=== PATIENT | male | born 1990 | race Caucasian/White ===

== ENCOUNTER 2019-11-13 22:43 | Emergency (ER) | payer MEDICAID ==
--- NOTE | 2019-11-13 22:46 | ED Physician Documentation ---
History of Present Illness - Stated complaint Stated Complaint: ABD PX - History obtained from History obtained from: Patient (Patient is a 29-year-old male presents with a chief complaint of abdominal pain with nausea and vomiting patient reports that he thinks he might have gallstones. He denies any dark urine or sarah colored stools or any flank pain or dysuria or hematuria.He denies any fevers or any history of previous abdominal surgeries.) Review of Systems Constitutional: reports: Reviewed and negative Eyes: reports: Reviewed and negative Ears: reports: Reviewed and negative Nose: reports: Reviewed and negative Throat: reports: Reviewed and negative Cardiac: reports: Reviewed and negative Respiratory: reports: Reviewed and negative GI: reports: Abdominal Pain, Nausea, Vomiting : reports: Reviewed and negative Skin: reports: Reviewed and negative Musculoskeletal: reports: Reviewed and negative Neurologic: reports: Reviewed and negative Psychiatric: reports: Reviewed and negative Endocrine: reports: Reviewed and negative Immunocompromised: reports: Reviewed and negative PD PAST MEDICAL HISTORY - Allergies Allergies/Adverse Reactions: Allergies Allergy/AdvReac Type Severity Reaction Status Date / Time amoxicillin Allergy Rash Verified 11/13/19 22:46 Penicillins Allergy Rash Verified 11/13/19 22:46 PD ED PE NORMAL - Vitals Vital signs reviewed: Yes - General General: Alert and oriented X 3, No acute distress, Well developed/nourished - HEENT HEENT: PERRL, Moist mucous membranes, Pharynx benign - Neck Neck: Supple, no meningeal sign - Cardiac Cardiac: RRR, No murmur, Strong equal pulses - Respiratory Respiratory: No respiratory distress, Clear bilaterally - Abdomen Abdomen: Other (There is diffuse tenderness more so on the right upper quadrant, negative Ma sign, negative Rovsing's negative psoas no peritoneal signs no midline abdominal pulsatile mass diminished bowel sounds, diffusely tender to palpation no skin ecchymosis no flank ecchymosis no CVA tenderness.) - Back Back: No CVA TTP, No spinal TTP - Derm Derm: Normal color, Warm and dry, No rash - Extremities Extremities: No deformity, No tenderness to palpate, Normal ROM s pain, No edema, No calf tenderness / cord - Neuro Neuro: Alert and oriented X 3, practice coordinator 2-12 intact, No motor deficit, No sensory deficit, Normal speech - Psych Psych: Normal mood, Normal affect Results - Vitals Vitals: Vital Signs - 24 hr 11/13/19 11/13/19 11/14/19 22:46 23:37 00:32 Temperature 36.5 C Heart Rate 100 91 90 Respiratory 16 18 18 Rate Blood Pressure 137/83 H 126/80 125/76 O2 Saturation 98 96 98 11/14/19 01:42 Temperature Heart Rate 83 Respiratory 18 Rate Blood Pressure 116/80 O2 Saturation 98 Oxygen O2 Source Room air - Labs Labs: Laboratory Tests 11/13/19 11/13/19 11/13/19 23:05 23:25 23:25 WBC 6.1 RBC 5.21 Hgb 15.9 Hct 44.9 MCV 86.2 MCH 30.5 MCHC 35.4 RDW 12.3 Plt Count 246 MPV 10.8 Neut # (Auto) 4.1 Lymph # (Auto) 1.4 L Frio # (Auto) 0.5 Eos # (Auto) 0.1 Baso # (Auto) 0.1 Absolute Nucleated RBC 0.00 Nucleated RBC % 0.0 Sodium 138 Potassium 3.6 Chloride 102 Carbon Dioxide 26 Anion Gap 10.0 BUN 13 Creatinine 1.0 Estimated GFR (MDRD) 88 L Glucose 108 H Calcium 9.1 Total Bilirubin 0.6 Direct Bilirubin 0.1 AST 26 ALT 33 Alkaline Phosphatase 71 Total Protein 7.0 Albumin 4.5 Globulin 2.5 Lipase 32 Urine Color YELLOW Urine Clarity CLEAR Urine pH 5.5 Ur Specific [place] 1.020 Urine Protein NEGATIVE Urine Glucose (UA) NEGATIVE Urine Ketones NEGATIVE Urine Occult Blood NEGATIVE Urine Nitrite NEGATIVE Urine Bilirubin NEGATIVE Urine Urobilinogen 0.2 (NORMAL) Ur Leukocyte Esterase NEGATIVE Ur Microscopic Review NOT INDICATED Urine Culture Comments NOT INDICATED PD MEDICAL DECISION MAKING - ED course Complexity details: reviewed results, re-evaluated patient, considered differential (Cholelithiasis, cholecystitis, pancreatitis, peptic ulcer disease, GERD, Gastritis), d/w patient, other (Patient CT scan scan does show possible epiploic appendagitis. Had a lengthy discussion about this and recommend that he have close follow-up. He agrees to do so. He should hydrate well take ibuprofen or Tylenol as needed for symptoms and follow-up with a primary care provider today or return to the emergency department within the next 24 hours for recheck.) Departure - Departure Disposition: 01 Home, Self Care Clinical Impression: Epiploic appendagitis, Gastroparesis Abdominal pain Qualifiers: Abdominal location: unspecified location Qualified Code(s): R10.9 - Unspecified abdominal pain Condition: Stable Instructions: Abdominal Pain Follow-Up: your, doctor [Other] - 11/14/19 [facility] [Provider Group] - 11/14/19 Comments: take 600 mg of ibuprofen as needed for symptoms. follow up with your primary care provider today. Discharge Date/Time: 11/14/19 01:42
[2019-11-13] MEDS ORDERED: SODIUM CHLORIDE 0.9% 1,000 ML IV STA (23:13)
[2019-11-13] MEDS ORDERED: ONDANSETRON 4 MG/2 ML VIAL IVP STA (23:13)
[2019-11-13] MEDS ORDERED: MORPHINE 2 MG/ML CARPUJECT IVP STA (23:13)
[2019-11-13 23:20] LABS: BILIRUBIN,URINE NEGATIVE (NEGATIVE); CLARITY,URINE CLEAR (CLEAR); GLUCOSE, URINE (UA) NEGATIVE (NEGATIVE); KETONES,URINE (UA) NEGATIVE (NEGATIVE); LEUKOCYTE ESTERASE, URINE NEGATIVE (NEGATIVE); NITRITE,URINE NEGATIVE (NEGATIVE); OCCULT BLOOD,URINE NEGATIVE (NEGATIVE); PH,URINE 5.5 PH (5.0-7.5); PROTEIN,URINE NEGATIVE (NEGATIVE); UROBILINOGEN,URINE 0.2 (NORMAL) E.U./dL (NORMAL)
[2019-11-13] MEDS ORDERED: IOVERSOL 320 100 ML VIAL IVP ONE (23:25)
[2019-11-13 23:46] LABS: BASOPHILS # (AUTO) 0.1 10^3/uL (0.0-0.1); BASOPHILS % (AUTO) 0.8 %; EOSINOPHILS # (AUTO) 0.1 10^3/uL (0.0-0.7); EOSINOPHILS % (AUTO) 1.8 %; HGB - HEMOGLOBIN 15.9 g/dL (14.0-18.0); LYMPHOCYTES # (AUTO) 1.4 10^3/uL (1.5-3.5); LYMPHOCYTES % (AUTO) 22.2 %; MEAN CORPUSCULAR HEMOGLOBIN 30.5 pg (27.0-31.0); MEAN CORPUSCULAR HGB CONC 35.4 g/dL (32.0-36.0); MEAN CORPUSCULAR VOLUME 86.2 fL (80.0-94.0); MEAN PLATELET VOLUME 10.8 fL (7.4-11.4); MONOCYTES # (AUTO) 0.5 10^3/uL (0.0-1.0); MONOCYTES % (AUTO) 7.6 %; NEUTROPHILS # (AUTO) 4.1 10^3/uL (1.5-6.6); NEUTROPHILS % (AUTO) 67.3 %; PLT - PLATELET COUNT 246 10^3/uL (130-450); RED BLOOD COUNT 5.21 10^6/uL (4.70-6.10); RED CELL DISTRIBUTION WIDTH 12.3 % (12.0-15.0); WHITE BLOOD COUNT 6.1 x10^3/uL (4.8-10.8)
[2019-11-14 00:02] LABS: ALBUMIN 4.5 g/dL (3.2-5.5); BILIRUBIN,DIRECT 0.1 mg/dL (0.1-0.5); BILIRUBIN,TOTAL 0.6 mg/dL (0.2-1.0); CALCIUM 9.1 mg/dL (8.5-10.3)
[2019-11-14 01:43] VITALS: BP 116/80
--- NOTE | 2019-11-14 08:18 | CT Report ---
PROCEDURE: Abdomen/Pelvis W INDICATIONS: abd pain CONTRAST: IV CONTRAST: Optiray 320 ml: 100 PO CONTRAST: *NO PO CONTRAST TECHNIQUE: After the administration of oral and intravenous contrast, 5 mm thick sections acquired from the diap hragms to the symphysis. 5 mm thick coronal and sagittal reformats were acquired. For radiation dos e reduction, the following was used: automated exposure control, adjustment of mA and/or kV accordin g to patient size. COMPARISON: None. FINDINGS: Image quality: Excellent. ABDOMEN: Lung bases: Lung bases are clear. Heart size is normal. Solid organs: Liver and spleen are normal in size and enhancement. Mild hepatic steatosis is seen. Gallbladder is within normal limits Biliary system is non dilated. Pancreas enhances normally. No adrenal nodules. Kidneys demonstrate normal size and enhancement, without hydronephrosis. Peritoneum and bowel: Bowel loops demonstrate normal wall thickness and caliber. No free fluid or a ir. Fecal stasis throughout the colon is seen. Questionable pericolonic fat stranding adjacent to po sterior and left lateral aspect of mid to distal sigmoid colon. No abscess collection. Nodes and vessels: No retroperitoneal or mesenteric adenopathy by size criteria. Aorta and inferior vena cava are normal in size. Miscellaneous: No ventral hernias. PELVIS: Genitourinary: Bladder wall thickness is normal. Miscellaneous: No inguinal hernias or adenopathy. Bones: No suspicious bony lesions. No vertebral body compression fractures. IMPRESSION: 1. Pericolonic fat stranding adjacent to distal sigmoid colon in left lower quadrant, which may repre sent low-grade epiploic appendagitis. No abnormal bowel wall thickening. No bowel obstruction. No abs cess collection. No free fluid or free air. Mild constipation. 2. Mild hepatic steatosis. No significant discrepancies. Reviewed by: Duncan Kaminski MD on 11/14/2019 8:17 AM PDT Approved by: Duncan Kaminski MD on 11/14/2019 8:17 AM PDT Station ID: [id number]
[2019-11-14] MEDS ORDERED: IOVERSOL 320 100 ML VIAL IVP ONE (17:12)
== END 2019-11-14 01:42 | disposition home or self-care (01) ==
LOC: ED 22:43
DX: K63.89 Other specified diseases of intestine (principal); K31.84 Gastroparesis; K76.0 Fatty (change of) liver, not elsewhere classified
CPT/HCPCS: 36415; 74177; 80048; 80076; 81003; 83690; 85025; 96361; 96374; 99283; 99284; Q9967; 81001; 87086

== ENCOUNTER 2020-03-14 18:31 | Outpatient (CLI) | payer MEDICAID ==
--- NOTE | 2020-03-14 19:58 | Ultrasound Report ---
PROCEDURE: Abdomen Limited INDICATIONS: RUQ PAIN TECHNIQUE: Real-time focused scanning was performed of the abdomen, with image documentation. COMPARISON: CT of abdomen and pelvis dated 11/14/2019 FINDINGS: There is hepatomegaly measures 18.6 cm in length. Increased liver parenchymal echotexture is seen. Fo sonam area of sparing is noted adjacent to gallbladder fossa. There is no gallstone. No gallbladder wall thickening or sonographic Ma's sign. There is no intrahepatic biliary duct dilatation. Common bile duct measures 5 mm in diameter and is w ithin normal limits. Pancreas is not visualized due to overlying bowel gas. Right kidney measures 11.6 cm in length. There is a 9 mm right renal cyst. No hydronephrosis. No rubén d-appearing renal lesion. IMPRESSION: 1. Hepatomegaly and hepatic steatosis. No discrete hepatic lesion. 2. Normal-appearing gallbladder. No biliary ductal dilatation. 3. Small subcentimeter right renal cyst. No hydronephrosis. Reviewed by: Duncan Kaminski MD on 03/14/2020 7:57 PM PDT Approved by: Duncan Kaminski MD on 03/14/2020 7:57 PM PDT Station ID: [id number]
== END 2020-03-14 18:32 | disposition home or self-care (01) ==
LOC: DI 18:31
DX: R10.11 Right upper quadrant pain (principal); N28.1 Cyst of kidney, acquired; K76.0 Fatty (change of) liver, not elsewhere classified
CPT/HCPCS: 76705

== ENCOUNTER 2020-04-23 14:00 | Outpatient (CLI) | payer MEDICAID ==
[2020-04-23 14:29] LABS: BASOPHILS # (AUTO) 0.1 10^3/uL (0.0-0.1); EOSINOPHILS # (AUTO) 0.1 10^3/uL (0.0-0.7); EOSINOPHILS % (AUTO) 1.8 %; HGB - HEMOGLOBIN 16.5 g/dL (14.0-18.0); LYMPHOCYTES # (AUTO) 1.2 10^3/uL (1.5-3.5); MEAN CORPUSCULAR HEMOGLOBIN 29.6 pg (27.0-31.0); MEAN CORPUSCULAR HGB CONC 34.5 g/dL (32.0-36.0); MEAN CORPUSCULAR VOLUME 85.8 fL (80.0-94.0); MEAN PLATELET VOLUME 10.9 fL (7.4-11.4); MONOCYTES # (AUTO) 0.4 10^3/uL (0.0-1.0); MONOCYTES % (AUTO) 8.4 %; NEUTROPHILS # (AUTO) 3.1 10^3/uL (1.5-6.6); PLT - PLATELET COUNT 246 10^3/uL (130-450); RED BLOOD COUNT 5.57 10^6/uL (4.70-6.10); RED CELL DISTRIBUTION WIDTH 13.1 % (12.0-15.0); WHITE BLOOD COUNT 4.9 x10^3/uL (4.8-10.8)
[2020-04-23 14:45] LABS: ALBUMIN 4.4 g/dL (3.2-5.5); ALBUMIN/GLOBULIN RATIO 1.5 (1.0-2.2); BILIRUBIN,DIRECT 0.1 mg/dL (0.1-0.5); BILIRUBIN,TOTAL 0.7 mg/dL (0.2-1.0); CALCIUM 9.8 mg/dL (8.5-10.3); CREATININE 1.1 mg/dL (0.6-1.2); TOTAL PROTEIN 7.3 g/dL (6.7-8.2)
== END 2020-04-23 14:01 | disposition home or self-care (01) ==
LOC: LAB 14:00
PROVIDERS: ATTEND Internal Medicine
DX: R16.0 Hepatomegaly, not elsewhere classified (principal)
CPT/HCPCS: 36415; 80053; 80076; 85025

== ENCOUNTER 2020-05-21 10:31 | Outpatient (CLI) | payer MEDICAID ==
[2020-05-21 11:49] VITALS: BP 123/86
--- NOTE | 2020-05-21 11:49 | SLEEP CARE CONSULTATION ---
Information from patient questionnaire entered by Catalina Macario. I have reviewed and concur with the information entered by Catalina Macario. This document represents the service I personally performed and the decisions made by me, Ileana Osei ARNP. History of Present Illness Service Date and Time: 05/21/2020 1031 Reason for Visit: New patient Chief Complaint: reports: Unrefreshed sleep, Snoring (rarely), Excessive daytime sleepiness (sometimes, taking naps lately with new medication), Observed pauses in breathing, Frequent awakenings at night. denies: Insomnia, Fatigue Date of Onset: 2-3 month Usual bedtime: 9 pm - 1 am Time it takes to fall asleep: 30-60 minutes Snores at night: No Observed to quit breathing while asleep: No Sleeps alone due to snoring: No Number of times waking at night: 2-3 Reasons for waking at night: reports: Choking (sometimes), Gasping for air (once), Bathroom. denies: Snoring Toss, Turn, or Twitch while sleeping: Yes Recalls having dreams: Yes Usually gets out of bed at: 6-11 am Feels refreshed in the morning: Yes (sometimes) Morning headache: No Sleepy or fatigued during the day: Yes Ever fallen asleep while driving: No Takes day naps: Yes Dreams during day naps: Yes Prior sleep studies: Yes (when I was young, in [place]) Additional HPI information: I had the pleasure of seeing MARY SMITH today regarding the possibility of him having a sleep disorder. His current complaints are observed pauses in breathing and frequent night awakenings. He feels his sleep pattern is off because he thinks he has had a "psychic break" due to medications he was taking about 1-2 months ago and now he is having anxiety about his being in his bed and stopping breathing when sleeping. He woke up once gasping because he could not move or breathe. He does not think he snores but he did have a girlfriend who told him he snored. He thinks it is more when he is having bad allergies. He has stopped smoking 2 years ago. He stopped smoking weed 2 months ago to be able to get a job. He used smoking weed for his anxiety mostly. He just wants to see if he has sleep apnea or if it might be something in his mind that he needs different therapy to treat. - Parasomnia Symptoms Ever been unable to move upon waking from sleep: Yes Walks in sleep: No Talks in sleep: Yes Ever acted out dreams in sleep: No Ever felt weak in the knees when startled or emotional: No Bothered by creepy, crawly, restless sensations in legs: No Problems with memory or concentration: Yes Subjective Initial [place] Sleepiness Scale score: 7 (in 2020) Past Medical History Past Medical History: reports: Anxiety, Mood disorder (Bipolar, PTSD), GERD, Attention deficit. denies: Hypertension, Arrythmia, Depression Social History The patient's occupation is a Not Employed. Patient is Single and lives in [place]. Have you smoked in the past 12 months: No Cigarettes per day (20/pack): 20 Years of smokin Quit date: 10/2018 Smoking Pack Years: 10.0 Alcohol use: No Alcohol amount and frequency: 6-15 drinks every day for 3 years; in the past Caffeine use: No Family History Family history of sleep disordered breathing: No Allergies and Home Medications Drug allergies reviewed: Yes (amoxicillin, penicillin) Home medication list reviewed: Yes Allergy and home medication list: Abidavid Xanax Lamictal Seroquel Review of Systems Weight gain over past 5 years: 65 Cardiovascular: denies: high blood pressure Respiratory: reports: shortness of breath Gastrointestinal: reports: heartburn (occasionally), abdominal pain Urinary: reports: frequency Neurological: denies: headaches Psychiatric: reports: Attention Deficit Hyperactivity, anxiety, mood disorder Ear/Nose/Throat: reports: nasal congestion, sinus problems, wisdom teeth removed. denies: dry mouth/throat, tonsillectomy Endocrine: reports: increased urination Musculoskeletal: reports: neck pain Immunologic: reports: allergies to food or environment Physical Exam Blood Pressure: 123/86 Cuff size: wrist Heart Rate: 79 O2 Saturation: 96 Height: 6 ft Weight: 208 lb Body Mass Index: 28.2 BMI Classification: Overweight Neck circumference: 15.2 (inches) Nostrils: patent to airflow Turbinates: swollen Mouth and throat: narrow oropharynx Hard palate: arched Uvula visualization: 50% Mallampati Class II Tongue: enlarged in size with teeth tamez on lateral edges Tonsils: 1+ Chin and jaw: normal size and position Neck: normal w/o lymphadenopathy or thyromegaly Heart: regular rate and rhythm Lungs: clear bilaterally Impression and Plan 1. Suspected Obstructive Sleep Apnea-Hypopnea Syndrome, as suggested by a history of irregular snoring, observed cessation of breath while asleep, gasping or choking in sleep, frequent awakening during the night, unrefreshed sleep, cognitive impairment, and excessive daytime sleepiness. I reviewed with patient that a narrow oropharynx and obesity are common predisposing factors for obstructive sleep apnea-hypopnea syndrome. I recommend proceeding to polysomnography to confirm the diagnosis and to assess severity. If the patient has significant sleep disordered breathing, a manual CPAP titration study will also be performed to find the optimal treatment pressure. I informed the patient of what the sleep studies involve and after some discussion, obtained agreement to proceed. The pathophysiology of obstructive sleep apnea-hypopnea syndrome was discussed with the patient and health risks of cardiovascular and cerebrovascular disease if not treated. AAS brochure for obstructive sleep apnea-hypopnea syndrome given and reviewed. Risks of drowsy driving discussed in detail and patient advised to avoid long distance driving and to harness puller at the first sign of drowsiness. Patient agreed to plan. * Schedule polysomnography +- manual CPAP titration study and return in 1-2 weeks after the study to discuss result and initiate therapy. * Avoid long distance driving or driving when feeling sleepy. * Avoid alcohol, sedative and muscle relaxant around bedtime. * Attempt to lose weight. * Review instructions provided by trained office staff on how to prepare for the sleep study. * Return for follow-up after sleep study completed. Counseling Topics: Weight loss health impact Visit Type: In Office Time Spent with Patient (minutes): 32 Provider Statement: I spent 100% of the Face to Face Visit with the patient with greater than 50% spent counseling the patient and coordination of care.
== END 2020-05-21 10:32 | disposition home or self-care (01) ==
LOC: SC 10:31
PROVIDERS: ATTEND Nurse Practitioner Family
DX: G47.10 Hypersomnia, unspecified (principal); R41.89 Other symptoms and signs involving cognitive functions and awareness; G47.8 Other sleep disorders; R06.81 Apnea, not elsewhere classified; R06.83 Snoring; E66.3 Overweight; Z68.28 Body mass index [BMI] 28.0-28.9, adult
CPT/HCPCS: 99203; 99212

== ENCOUNTER 2020-06-11 19:30 | Outpatient (CLI) | payer MEDICAID | END 2020-06-11 19:31 | disposition home or self-care (01) | LOC: SC 19:30 | PROVIDERS: ATTEND Nurse Practitioner Family | DX: Z53.9 Procedure and treatment not carried out, unspecified reason (principal) ==

== ENCOUNTER 2020-07-19 16:06 | Emergency (ER) | payer MEDICAID ==
[2020-07-19 16:16] VITALS: BP 127/72
[2020-07-19] MEDS ORDERED: LIDOCAINE 2% URO-JET 5 ML SYRINGE UR STA (16:27)
--- NOTE | 2020-07-19 16:29 | ED Physician Documentation ---
PD HPI MALE - Stated complaint Stated Complaint: MALE - Chief complaint Chief Complaint: Abd Pain - History obtained from History obtained from: Patient - Additional information Additional information: He took an oxycodone that was prescribed to him for dental pain and subsequently was unable to urinate. This started about an hour ago. He feels like he has to pee but nothing comes out. No flank pain. Review of Systems Ten Systems: 10 systems reviewed and negative Constitutional: denies: Fever, Chills Cardiac: reports: Reviewed and negative Respiratory: reports: Reviewed and negative PD PAST MEDICAL HISTORY - Past Surgical History Past Surgical History: No - Allergies Allergies/Adverse Reactions: Allergies Allergy/AdvReac Type Severity Reaction Status Date / Time amoxicillin Allergy Rash Verified 07/19/20 16:16 Penicillins Allergy Rash Verified 07/19/20 16:16 - Social History Does the pt smoke?: No Smoking Status: Former smoker Does the pt drink ETOH?: No Does the pt have substance abuse?: No - Immunizations Immunizations are current?: Yes - POLST Patient has POLST: No PD ED PE NORMAL - Vitals Vital signs reviewed: Yes - General General: Alert and oriented X 3, No acute distress - HEENT HEENT: PERRL, EOMI - Abdomen Abdomen: Other (Very mild suprapubic tenderness. Bladder scan was done by the tech and reported to me as greater than 200 mL.) - Neuro Neuro: Alert and oriented X 3, Normal speech Results - Vitals Vitals: Vital Signs - 24 hr 07/19/20 16:13 Temperature 36.7 C Heart Rate 66 Respiratory 16 Rate Blood Pressure 127/72 O2 Saturation 96 Oxygen O2 Source Room air - Labs Labs: Laboratory Tests 07/19/20 16:49 Urine Color YELLOW Urine Clarity CLEAR Urine pH 8.0 H Ur Specific [place] 1.020 Urine Protein NEGATIVE Urine Glucose (UA) NEGATIVE Urine Ketones NEGATIVE Urine Occult Blood SMALL H Urine Nitrite NEGATIVE Urine Bilirubin NEGATIVE Urine Urobilinogen 0.2 (NORMAL) Ur Leukocyte Esterase NEGATIVE Urine RBC 0-5 Urine WBC 0-3 Ur Squamous Epith Cells NONE SEEN Urine Bacteria None Seen Ur Microscopic Review INDICATED Urine Culture Comments NOT INDICATED PD MEDICAL DECISION MAKING - ED course ED course: This is a younger concha with acute urinary retention, likely related to oxycodone use for dental pain. Straight cath was done with resolution of his discomfort. 650 mL reportedly came out with the straight cath. He was let sit for a while, then he was able to urinate on his own without assistance. Departure - Departure Disposition: 01 Home, Self Care Clinical Impression: Urinary retention Condition: Good Record reviewed to determine appropriate education?: Yes Instructions: ED Retention Urinary Male Comments: Come back if it recurs, avoid taking oxycodone in the future if you can. Followup with your primary doctor within the week.
[2020-07-19 16:59] LABS: BILIRUBIN,URINE NEGATIVE (NEGATIVE); GLUCOSE, URINE (UA) NEGATIVE (NEGATIVE); KETONES,URINE (UA) NEGATIVE (NEGATIVE); LEUKOCYTE ESTERASE, URINE NEGATIVE (NEGATIVE); NITRITE,URINE NEGATIVE (NEGATIVE); OCCULT BLOOD,URINE SMALL (NEGATIVE); PROTEIN,URINE NEGATIVE (NEGATIVE); UROBILINOGEN,URINE 0.2 (NORMAL) E.U./dL (NORMAL)
[2020-07-19 17:00] LABS: CLARITY,URINE CLEAR (CLEAR)
[2020-07-19 17:01] LABS: BACTERIA,URINE None Seen /HPF (None Seen); RBC,URINE 0-5 /HPF (0-5); SQUAMOUS EPITHELIAL CELL,UR NONE SEEN (<= Few)
== END 2020-07-19 18:12 | disposition home or self-care (01) ==
LOC: ED 16:06
DX: R33.9 Retention of urine, unspecified (principal); Z87.891 Personal history of nicotine dependence
CPT/HCPCS: 51701; 81001; 81003; 87086; 99282; 99283

== ENCOUNTER 2020-07-29 10:17 | Emergency (ER) | payer MEDICAID ==
[2020-07-29 11:47] LABS: BILIRUBIN,URINE NEGATIVE (NEGATIVE); GLUCOSE, URINE (UA) NEGATIVE (NEGATIVE); KETONES,URINE (UA) NEGATIVE (NEGATIVE); LEUKOCYTE ESTERASE, URINE NEGATIVE (NEGATIVE); NITRITE,URINE NEGATIVE (NEGATIVE); OCCULT BLOOD,URINE NEGATIVE (NEGATIVE); PROTEIN,URINE NEGATIVE (NEGATIVE); UROBILINOGEN,URINE 0.2 (NORMAL) E.U./dL (NORMAL)
[2020-07-29 11:51] LABS: CLARITY,URINE CLEAR (CLEAR)
--- NOTE | 2020-07-29 12:04 | ED Physician Documentation ---
History of Present Illness - Stated complaint Stated Complaint: MALE - Chief complaint Chief Complaint: General - History obtained from History obtained from: Patient - Additonal information Additional information: Patient comes emergency department chief complaint of continuous feeling of having to urinate. He states that he thinks he is retaining urine because he is on some Vicodin for dental work that he had done, and this concern has brought him in. Patient states symptoms have been going on for about 3 days and that this is happened before when he has been on narcotics. He states that those times, he had to have a catheter put in temporarily. Patient denies any dysuria or hematuria. No fever or chills. No nausea or vomiting. He has some mild sense of pain over his suprapubic area. No other complaints at this time. Review of Systems Ten Systems: 10 systems reviewed and negative Constitutional: reports: Reviewed and negative Eyes: reports: Reviewed and negative Ears: reports: Reviewed and negative Nose: reports: Reviewed and negative Throat: reports: Reviewed and negative Cardiac: reports: Reviewed and negative Respiratory: reports: Reviewed and negative GI: reports: Reviewed and negative : reports: Frequency, Reviewed and negative Skin: reports: Reviewed and negative Musculoskeletal: reports: Reviewed and negative Neurologic: reports: Reviewed and negative Psychiatric: reports: Reviewed and negative Endocrine: reports: Reviewed and negative Immunocompromised: reports: Reviewed and negative PD PAST MEDICAL HISTORY - Past Surgical History Past Surgical History: No - Present Medications Home Medications: Ambulatory Orders Medication Instructions Recorded Confirmed Alprazolam [Xanax] 3 mg PO PRN PRN 07/29/20 07/29/20 Aripiprazole [Abilify] 1 tab PO DAILY 07/29/20 07/29/20 Phenazopyridine HCl [Pyridium] 200 mg PO TID PRN #6 tab 07/29/20 QUEtiapine [SEROquel] 2 tab PO DAILY 07/29/20 07/29/20 lamoTRIgine [Lamictal Xr] 1 tab PO DAILY 07/29/20 07/29/20 - Allergies Allergies/Adverse Reactions: Allergies Allergy/AdvReac Type Severity Reaction Status Date / Time amoxicillin Allergy Rash Verified 07/19/20 16:16 Penicillins Allergy Rash Verified 07/19/20 16:16 - Social History Does the pt smoke?: No Smoking Status: Never smoker Does the pt drink ETOH?: No Does the pt have substance abuse?: No - Immunizations Immunizations are current?: Yes - POLST Patient has POLST: No PD ED PE NORMAL - Vitals Vital signs reviewed: Yes - General General: Alert and oriented X 3, No acute distress - HEENT HEENT: Atraumatic, PERRL, EOMI, Moist mucous membranes - Neck Neck: Supple, no meningeal sign - Cardiac Cardiac: RRR, No murmur, Strong equal pulses - Respiratory Respiratory: No respiratory distress, Clear bilaterally - Abdomen Abdomen: Soft, Non distended, Other (Mild tenderness, suprapubic region.) - Back Back: No CVA TTP - Derm Derm: Normal color, Warm and dry, No rash - Extremities Extremities: No deformity, No edema, No calf tenderness / cord - Neuro Neuro: Alert and oriented X 3, english lecturer 2-12 intact, No motor deficit, No sensory deficit, Normal speech - Psych Psych: Normal mood, Normal affect Results - Vitals Vitals: Vital Signs - 24 hr 07/29/20 07/29/20 10:19 12:19 Temperature 36.4 C L 36.8 C Heart Rate 88 78 Respiratory 18 18 Rate Blood Pressure 134/80 H 115/73 O2 Saturation 98 99 Oxygen O2 Source Room air - Labs Labs: Laboratory Tests 07/29/20 11:40 Urine Color YELLOW Urine Clarity CLEAR Urine pH 7.0 Ur Specific [place] 1.010 Urine Protein NEGATIVE Urine Glucose (UA) NEGATIVE Urine Ketones NEGATIVE Urine Occult Blood NEGATIVE Urine Nitrite NEGATIVE Urine Bilirubin NEGATIVE Urine Urobilinogen 0.2 (NORMAL) Ur Leukocyte Esterase NEGATIVE Ur Microscopic Review NOT INDICATED Urine Culture Comments NOT INDICATED PD MEDICAL DECISION MAKING - ED course Complexity details: reviewed results, re-evaluated patient, considered differential, d/w patient ED course: Bladder scan was performed after patient had urinated twice in the emergency department shortly after arrival, and patient was found to have 18 cc of urine in his bladder. Urinalysis was unremarkable. I discussed with the patient that I am really not sure why he has the sense of frequency and urgency. He certainly does not have any urinary retention and I have advised him of this. Patient is advised to follow-up with his primary care physician and possibly seek referral to urology, should he continue to have the symptoms for more than the next week. He will be put on a course of Pyridium to see if this helps with the irritation and constant urge to urinate. Patient is a advised to drink plenty of water, which he has not been doing out of fear of having to urinate more and not been able to go. We have discussed the usual indications for return. Departure - Departure Disposition: 01 Home, Self Care Clinical Impression: Bladder irritability Condition: Stable Instructions: ED Dysuria Uncertain Cause Prescriptions: Phenazopyridine HCl [Pyridium] 200 mg PO TID PRN #6 tab PRN Reason: dysuria Comments: Your urinalysis is negative. It is not clear why you continually feel the need to urinate. You were able to urinate here and there is very little urine left in your bladder. You may use the Pyridium and see if this helps your symptoms. If not, you will need to talk to your primary doctor about seeing a urologist potentially. Discharge Date/Time: 07/29/20 12:24
[2020-07-29 12:20] VITALS: BP 115/73
== END 2020-07-29 12:24 | disposition home or self-care (01) ==
LOC: ED 10:17
DX: N32.89 Other specified disorders of bladder (principal); R39.15 Urgency of urination
CPT/HCPCS: 51798; 81001; 81003; 87086; 99283; 99284

== ENCOUNTER 2021-10-02 10:13 | Outpatient (CLI) | payer MEDICAID ==
[2021-10-02 13:10] LABS: BASOPHILS % (AUTO) 1.2 %; EOSINOPHILS # (AUTO) 0.1 10^3/uL (0.0-0.7); EOSINOPHILS % (AUTO) 2.1 %; HCT - HEMATOCRIT 49.6 % (42.0-52.0); LYMPHOCYTES % (AUTO) 31.5 %; MEAN CORPUSCULAR HEMOGLOBIN 30.2 pg (27.0-31.0); MEAN CORPUSCULAR HGB CONC 34.3 g/dL (32.0-36.0); MEAN CORPUSCULAR VOLUME 88.1 fL (80.0-94.0); MEAN PLATELET VOLUME 12.4 fL (7.4-11.4); MONOCYTES # (AUTO) 0.3 10^3/uL (0.0-1.0); MONOCYTES % (AUTO) 8.9 %; NEUTROPHILS # (AUTO) 1.8 10^3/uL (1.5-6.6); PLT - PLATELET COUNT 228 10^3/uL (130-450); RED BLOOD COUNT 5.63 10^6/uL (4.70-6.10); RED CELL DISTRIBUTION WIDTH 12.6 % (12.0-15.0); WHITE BLOOD COUNT 3.3 x10^3/uL (4.8-10.8)
[2021-10-02 13:41] LABS: ALBUMIN 4.8 g/dL (3.2-5.5); ALBUMIN/GLOBULIN RATIO 1.6 (1.0-2.2); ALKALINE PHOSPHATASE 68 IU/L (42-121); ALT ALANINE AMINOTRANSFERASE 37 IU/L (10-60); AST ASPARTATE AMINOTRANSFERASE 23 IU/L (10-42); BUN - BLOOD UREA NITROGEN 17 mg/dL (6-20); CALCIUM 9.3 mg/dL (8.5-10.3); CARBON DIOXIDE - CO2 26 mmol/L (21-32); CHLORIDE 102 mmol/L (101-111); CHOL/HDL RATIO 5.1 (<5.0); CHOLESTEROL 179 mg/dL; CREATININE 1.1 mg/dL (0.6-1.2); GFR - MDRD 78 (>89); GLUCOSE 101 mg/dL (70-100); HDL CHOLESTEROL 35 mg/dL; LDL CHOLESTEROL,CALCULATED 121 mg/dL; LDL/HDL RATIO 3.5 (<3.6); POTASSIUM 4.3 mmol/L (3.5-5.0); SODIUM 140 mmol/L (135-145); TOTAL PROTEIN 7.8 g/dL (6.7-8.2); TRIGLYCERIDES 116 mg/dL; VLDL CHOLESTEROL 23 mg/dL
[2021-10-02 13:49] LABS: THYROID STIMULATING HORMONE 1.9 uIU/mL (0.34-5.60)
== END 2021-10-02 10:14 | disposition home or self-care (01) ==
LOC: LAB.N 10:13
PROVIDERS: ATTEND Physician Assistant
DX: K75.81 Nonalcoholic steatohepatitis (NASH) (principal); Z13.220 Encounter for screening for lipoid disorders; Z13.29 Encounter for screening for other suspected endocrine disorder; Z13.9 Encounter for screening, unspecified
CPT/HCPCS: 36415; 80053; 80061; 83721; 84443; 85025

== ENCOUNTER 2022-05-27 08:00 | Outpatient (CLI) | payer MEDICAID ==
[2022-05-27 22:57] LABS: CHLAMYDIA TRACHOMATIS DNA NEGATIVE (NEGATIVE); NEISSERIA GONORRHOEAE DNA NEGATIVE (NEGATIVE)
== END 2022-05-27 23:59 | disposition home or self-care (01) ==
LOC: LAB.N 08:00
PROVIDERS: ATTEND Family Medicine
DX: N34.2 Other urethritis (principal)
CPT/HCPCS: 87491; 87591; 87661

== ENCOUNTER 2023-05-29 05:48 | Outpatient (CLI) | payer MEDICAID | END 2023-05-29 05:49 | disposition critical access hospital (66) | LOC: EMS 05:48 | DX: R45.851 Suicidal ideations (principal) | CPT/HCPCS: A0425; A0429; A0999 ==

== ENCOUNTER 2023-05-29 06:04 | Emergency (ER) | payer MEDICAID ==
--- NOTE | 2023-05-29 06:09 | ED Physician Documentation ---
History of Present Illness - Stated complaint Stated Complaint: SI - Additonal information Additional information: Patient 33-year-old male presenting to the emergency department with suicidal ideation. Reports suicidal ideation that has been ongoing for "a long time". Per EMS he has not been taking any of his regular psychiatric meds for the last several days. EMS was contacted by his brother. He denies any plan for suicide. Does report that he drank wine and beer this evening. Denies other illicit substances. Denies auditory or visual hallucination. History is limited by his altered mental status, intoxication and psychiatric disturbance. Current medications include Seroquel, clonazepam, Depakote Review of Systems Unable to obtain: Intoxicated, Other (Psychiatric disturbance) PD PAST MEDICAL HISTORY - Past Surgical History Past Surgical History: No - Present Medications Home Medications: Ambulatory Orders Medication Instructions Recorded Confirmed Divalproex Dr [Depakote Dr] 250 mg PO TID 05/29/23 05/29/23 QUEtiapine [SEROquel] 25 mg PO TID 05/29/23 05/29/23 clonazePAM [Klonopin] 1 mg PO TID 05/29/23 05/29/23 - Allergies Allergies/Adverse Reactions: Allergies Allergy/AdvReac Type Severity Reaction Status Date / Time amoxicillin Allergy Rash Verified 05/29/23 06:28 Penicillins Allergy Rash Verified 05/29/23 06:28 - Social History Does the pt smoke?: No Smoking Status: Never smoker Does the pt drink ETOH?: No Does the pt have substance abuse?: No - Immunizations Immunizations are current?: Yes - POLST Patient has POLST: No PD ED PE NORMAL - Vitals Vital signs reviewed: Yes - General General: Alert and oriented X 3 - HEENT HEENT: Atraumatic - Neck Neck: Supple, no meningeal sign - Cardiac Cardiac: RRR - Respiratory Respiratory: No respiratory distress - Abdomen Abdomen: Normal bowel sounds - Male Male : Deferred - Rectal Rectal: Deferred - Back Back: No CVA TTP - Derm Derm: Normal color - Psych Psych: Other (Patient has a flattened affect. Endorses for suicidality without plan. Does not appear to be internally focused or fixated.) Results - Vitals Vitals: Vital Signs - 24 hr 05/29/23 06:20 Temperature 36.9 C Heart Rate 82 Respiratory 16 Rate Blood Pressure 116/80 O2 Saturation 100 Oxygen O2 Source Room air PD Medical Decision Making - ED course ED course: Patient 33-year-old male presenting to the emergency department with suicidal ideation. This is in the setting known history of bipolar disorder and stated noncompliance with his medications as well as recent alcohol abuse. Afebrile, hemodynamically stable on arrival to the emergency department. Patient had somewhat flattened affect but was otherwise fully responsive to questions. Did not appear to be responding to internal stimuli. Endorse for suicidality without plan. History was somewhat limited as he was somewhat guarded in his responses. For example when asked how long he had been feeling suicidal he would not clarify and would only reiterate "a very long time". I have ordered comprehensive psychiatric medical clearance labs at this time I will be signing him out to the oncoming physician, please see their documentation for further detail. Departure - Departure Clinical Impression: Suicidal ideation
[2023-05-29 07:04] LABS: AMPHETAMINE SCREEN,URINE NEGATIVE (NEGATIVE); BARBITURATE SCREEN,UR NEGATIVE (NEGATIVE); BENZODIAZEPINES SCREEN, URINE NEGATIVE (NEGATIVE); BUPRENORPHINE SCREEN, URINE NEGATIVE (NEGATIVE); COCAINE SCREEN URINE NEGATIVE (NEGATIVE); METHADONE SCREEN, URINE NEGATIVE (NEGATIVE); METHAMPHETAMINES SCREEN, URINE NEGATIVE (NEGATIVE); OPIATE SCREEN, URINE NEGATIVE (NEGATIVE); OXYCODONE SCREEN, URINE NEGATIVE (NEGATIVE); THC CANNABINOID SCREEN, URINE POSITIVE (NEGATIVE); TRICYCLIC ANTIDEPRESSANT,URINE NEGATIVE (NEGATIVE)
[2023-05-29 07:08] LABS: BASOPHILS % (AUTO) 0.9 %; EOSINOPHILS # (AUTO) 0.1 10^3/uL (0.0-0.7); EOSINOPHILS % (AUTO) 1.5 %; HCT - HEMATOCRIT 53.2 % (42.0-52.0); LYMPHOCYTES # (AUTO) 1.8 10^3/uL (1.5-3.5); LYMPHOCYTES % (AUTO) 38.7 %; MEAN CORPUSCULAR HEMOGLOBIN 29.4 pg (27.0-31.0); MEAN CORPUSCULAR HGB CONC 33.8 g/dL (32.0-36.0); MEAN CORPUSCULAR VOLUME 86.9 fL (80.0-94.0); MONOCYTES # (AUTO) 0.4 10^3/uL (0.0-1.0); MONOCYTES % (AUTO) 8.8 %; NEUTROPHILS # (AUTO) 2.3 10^3/uL (1.5-6.6); NEUTROPHILS % (AUTO) 49.4 %; PLT - PLATELET COUNT 250 10^3/uL (130-450); RED BLOOD COUNT 6.12 10^6/uL (4.70-6.10); RED CELL DISTRIBUTION WIDTH 13.2 % (12.0-15.0); WHITE BLOOD COUNT 4.6 x10^3/uL (4.8-10.8)
[2023-05-29 07:39] LABS: ACETAMINOPHEN 0.1 ug/mL; ALBUMIN/GLOBULIN RATIO 1.8 (1.0-2.2); ALKALINE PHOSPHATASE 50 IU/L (42-121); ALT ALANINE AMINOTRANSFERASE 13 IU/L (10-60); AST ASPARTATE AMINOTRANSFERASE 14 IU/L (10-42); BILIRUBIN,TOTAL 0.5 mg/dL (0.2-1.0); BUN - BLOOD UREA NITROGEN 13 mg/dL (6-20); CALCIUM 9.7 mg/dL (8.5-10.3); CARBON DIOXIDE - CO2 24 mmol/L (21-32); CHLORIDE 105 mmol/L (101-111); CK- CREATINE KINASE 62 IU/L (30-223); ETOH - ETHANOL 252.1 mg/dL; GFR - MDRD 86 (>89); GLUCOSE 76 mg/dL (74-104); LIPASE 38 U/L (11-82); MAGNESIUM 2.1 mg/dL (1.7-2.3); POTASSIUM 4.2 mmol/L (3.5-4.5); SODIUM 142 mmol/L (135-145); TOTAL PROTEIN 7.8 g/dL (6.4-8.9)
[2023-05-29 07:46] LABS: SALICYLATE < 1.5 mg/dL
[2023-05-29] MEDS ORDERED: clonazePAM 0.5 MG TABLET PO STA ×2 (11:59→17:44)
[2023-05-29] MEDS ORDERED: DIVALPROEX ER 250 MG TABLET PO STA (12:00)
--- NOTE | 2023-05-29 12:02 | ED Physician Documentation ---
ED Addendum - Addendum Addendum: 05/29/23 12:01 33-year-old male with history of bipolar disorder and depression he is suicidal. He does not have any specific plan but wants to see God. He feels that hospitalization is something that we will help and he has been hospitalized previously in 2006. He is on an intensive outpatient program.A screening physical exam was done by Dr. Morrell and the case was turned over to me at shift change with the patient's level of intoxication preventing psychiatric evaluation. The patient was cooperative in the emergency department and a second blood alcohol was obtained demonstrating a metabolism about 20/h and at the time of sobering the social media designer was consulted. BA at 1614 is 45. The social media designer was able to make arrangements for transfer the patient to [facility]. The patient is voluntary. 05/29/23 16:42 Impression: Depression with suicidal ideation Plan: The patient is voluntary to [facility]. 05/29/23 17:00
[2023-05-29] MEDS: QUEtiapine 25 MG TABLET PO STA ×2 (12:24→12:27)
[2023-05-29] MEDS ORDERED: QUEtiapine 25 MG TABLET PO STA (17:47)
[2023-05-29 17:56] LABS: B. PARAPERTUSSIS- RESP PCR PAN NOT DETECTED; B. PERTUSSIS- RESP PCR PANEL NOT DETECTED; C. PNEUMONIAE- RESP PCR PANEL NOT DETECTED; CORONAVIRUS 229E-RESP PCR NOT DETECTED; CORONAVIRUS HKU1-RESP PCR NOT DETECTED; CORONAVIRUS NL63-RESP PCR NOT DETECTED; CORONAVIRUS OC43-RESP PCR NOT DETECTED; HUMAN METAPNEUMOVIRUS NOT DETECTED; INFLUENZA A- RESP PCR PANEL NOT DETECTED; INFLUENZA B - RESP PCR PANEL NOT DETECTED; M. PNEUMONIAE- RESP PCR PANEL NOT DETECTED; PARAINFLUENZA VIRUS 1 NOT DETECTED; PARAINFLUENZA VIRUS 2 NOT DETECTED; PARAINFLUENZA VIRUS 3 NOT DETECTED; PARAINFLUENZA VIRUS 4 NOT DETECTED; RHINOVIRUS/ENTEROVIRUS NOT DETECTED; RSV- RESP PCR PANEL NOT DETECTED; SARS-CoV-2 -RESP PCR PANEL NOT DETECTED
[2023-05-29] MEDS ORDERED: DIVALPROEX ER 250 MG TABLET PO SCH (19:00)
[2023-05-29 19:06] VITALS: BP 114/73; O2SAT 98
[2023-05-30] MEDS ORDERED: DIVALPROEX ER 250 MG TABLET PO SCH (09:00)
== END 2023-05-29 19:05 ==
LOC: EDUNIT# → ED 06:04
DX: R45.851 Suicidal ideations (principal); F10.129 Alcohol abuse with intoxication, unspecified; Y90.8 Blood alcohol level of 240 mg/100 ml or more; F31.9 Bipolar disorder, unspecified; F32.A Depression, unspecified; Z91.148 Patient's other noncompliance with medication regimen for other reason
CPT/HCPCS: 36415; 80053; 80306; 80307; 80320; 80329; 82550; 83690; 83735; 85025; 87633; 93005; 99283; 99285; A9270